=== PATIENT | female | born 2000 | race Caucasian/White ===

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

== ENCOUNTER 2021-04-08 19:03 | Emergency (ER) | payer OTHER ==
[2021-04-08 19:10] VITALS: BP 115/74; PULSE 80; TEMP 98.1; BMI 30.9
[2021-04-08] MEDS ORDERED: DIPHTH,PERTUSS(ACELL),TET 0.5 ML DISP.SYRIN IM ONE ×2 (19:29→19:34)
[2021-04-08] MEDS ORDERED: KETOROLAC TROMETHAMINE 60 MG/2 ML VIAL IM ONE (19:29)
[2021-04-08] MEDS ORDERED: SILVER SULFADIAZINE 1% TOP CREAM 50 GM JAR TP ONE ×2 (19:30→19:34)
[2021-04-08] MEDS ORDERED: KETOROLAC TROMETHAMINE 60 MG/2 ML VIAL ONE (19:34)
[2021-04-09] MEDS ORDERED: SILVER SULFADIAZINE 1% TOP CREAM 400 GM JAR TP SCH (10:00)
== END 2021-04-08 19:59 | disposition home or self-care (01) ==
LOC: JER 19:03 → JERFT 19:03
PROC: 3E0234Z Introduction of Serum, Toxoid and Vaccine into Muscle, Percutaneous Approach (ICD-10-PCS; principal; 2021-04-08)
PROC: 3E0233Z Introduction of Anti-inflammatory into Muscle, Percutaneous Approach (ICD-10-PCS; 2021-04-08)
DX: T21.22XA Burn of second degree of abdominal wall, initial encounter (principal); T21.21XA Burn of second degree of chest wall, initial encounter; X10.0XXA Contact with hot drinks, initial encounter
CPT/HCPCS: 90471; 90715; 96372; 99284-25

== ENCOUNTER 2021-06-14 23:09 | Emergency (ER) | payer OTHER ==
[2021-06-14 23:21] VITALS: BP 116/78; PULSE 78; TEMP 98.2
[2021-06-15] MEDS ORDERED: diphenhydrAMINE HCL 25 MG CAPSULE (FP) PO ONE ×3 (00:05→00:15)
== END 2021-06-15 00:18 | disposition home or self-care (01) ==
LOC: JER 23:09
DX: B35.4 Tinea corporis (principal)
CPT/HCPCS: 99283-25

== ENCOUNTER 2021-08-25 21:53 | Emergency (ER) | payer OTHER ==
[2021-08-25 21:59] VITALS: BP 112/72; PULSE 83; TEMP 97; BMI 29.8
[2021-08-25] MEDS ORDERED: ACETAMINOPHEN 500 MG TABLET (FP) PO ONE (22:17)
[2021-08-25] MEDS ORDERED: ACETAMINOPHEN 500 MG TABLET (FP) ONE (22:47)
[2021-08-25 23:11] LABS: BASO % 0.3 % (0-2.0); EOS % 1.1 % (0-4.5); HEMATOCRIT 36.3 % (32.4-45.2); HEMOGLOBIN 12.1 GM/dL (10.7-15.3); LYMPH % 13.9 % (8-40); MCH 27.1 pg (25.7-33.7); MCHC 33.4 g/dl (32.0-36.0); MEAN PLT VOLUME 7.7 fl (7.5-11.1); MONO % 7.5 % (3.8-10.2); NEUT % 77.2 % (42.8-82.8); PLATELET COUNT 302 10^3/uL (134-434); RBC 4.48 M/mm3 (3.60-5.2); RDW 13.4 % (11.6-15.6); WHITE BLOOD COUNT 12.5 K/mm3 (4.0-10.0)
[2021-08-25 23:14] LABS: HCG,QUALITATIVE URINE Positive
[2021-08-25 23:18] LABS: EPI CELLS 17 /uL (0-25.1); HYALINE CASTS 1 /uL (0-3.1); URINE APPEARANCE CLEAR; URINE BACTERIA 38 /uL (0-1359); URINE BILIRUBIN NEGATIVE (NEGATIVE); URINE COLOR YELLOW; URINE GLUCOSE (UA) NEGATIVE (NEGATIVE); URINE KETONE NEGATIVE (NEGATIVE); URINE LEUK ESTERASE NEGATIVE (NEGATIVE); URINE NITRITE NEGATIVE (NEGATIVE); URINE PROTEIN NEGATIVE (NEGATIVE); URINE RBC 2 /uL (0-23.9); URINE UROBILINOGEN 0.2 mg/dL (0.2-1.0); URINE WBC 6 /uL (0-25.8)
[2021-08-26 00:12] LABS: CALCIUM 9.3 mg/dL (8.5-10.1)
[2021-08-26 00:16] LABS: CREATININE 0.7 mg/dL (0.55-1.3)
[2021-08-26 00:25] LABS: BLOOD UREA NITROGEN 9.1 mg/dL (7-18)
== END 2021-08-26 01:10 | disposition home or self-care (01) ==
LOC: JER 21:53
DX: O20.9 Hemorrhage in early pregnancy, unspecified (principal); Z3A.01 Less than 8 weeks gestation of pregnancy
CPT/HCPCS: 36415; 76817-TC; 80048; 81003; 84702; 84703; 85025; 86850; 86900; 86901; 87086; 99284-25